=== PATIENT | female | born 1945 | race Hispanic/Latino ===

== ENCOUNTER 2017-06-18 20:03 | Emergency (ER) | payer OTHER, MEDICARE ==
[~2017-06-18 20:03] MED LIST: AMLO5TAB2 PO; DENO60DI SQ; ENAL20TA PO; GABA-529 PO; MELO-108 PO; PARO10TA71 PO; SOLI10TA PO; TIZA4TAB4 PO; TRAM50TA4 PO
[2017-06-18 20:30] LABS: APPEARANCE,URINE Clear (CLEAR); BILIRUBIN,URINE Negative (NEGATIVE); COLOR,URINE Yellow (YELLOW); GLUCOSE, URINE (UA) Negative (NEGATIVE); KETONES,URINE Trace mg/dL (NEGATIVE); LEUKOCYTE ESTERASE ,URINE Trace (NEGATIVE); NITRATE,URINE Negative (NEGATIVE); OCCULT BLOOD,URINE Negative (NEGATIVE); PROTEIN,URINE Negative (NEGATIVE)
[2017-06-18 20:36] LABS: BACTERIA,URINE None Seen /HPF (None Seen); RBC,URINE None Seen /HPF (0-1); SQUAMOUS EPITHELIAL CELL,UR 0-2 /LPF (0-2)
[2017-06-18] MEDS ORDERED: BENZONATATE 100 MG CAPSULE PO ONE (22:13)
[2017-06-18 22:44] LABS: BASOPHILS % (AUTO) 0.7 % (0.0-5.0); EOSINOPHILS % (AUTO) 2.4 % (0.0-8.0); HEMATOCRIT 35.6 % (36-48); LYMPHOCYTES % (AUTO) 17.5 % (21.0-51.0); MEAN CORPUSCULAR HGB CONC 33.8 g/dL (32.0-36.0); MEAN CORPUSCULAR VOLUME 82.8 fL (79-99); MONOCYTES % (AUTO) 8.3 % (3.0-13.0); NEUTROPHILS % (AUTO) 71.1 % (40.0-77.0); PLATELET COUNT (AUTO) 253 K/uL (130-400); RED CELL DISTRIBUTION WIDTH 13.8 % (11.0-15.5); WHITE BLOOD COUNT (AUTO) 10.6 K/uL (4.8-10.8)
[2017-06-18 22:55] LABS: POTASSIUM 4.1 mmol/L (3.5-5.1)
[2017-06-18 23:01] LABS: ALBUMIN 3.3 g/dL (3.5-5.0); BILIRUBIN,TOTAL 0.5 mg/dL (0.2-1.0); TOTAL PROTEIN, SERUM 7.4 g/dL (6.0-8.3)
[2017-06-18] MEDS ORDERED: ASPIRIN 325 MG TABLET ONE (23:23)
[2017-06-18 23:37] LABS: CREATINE KINASE MB < 0.5 ng/mL (0.5-3.6); CREATINE KINASE, TOTAL 68 U/L (21-232); MYOGLOBIN 43 ng/mL (10-92); TROPONIN I < 0.04 ng/mL (0.00-0.06)
== END 2017-06-19 00:28 | disposition home or self-care (01) ==
LOC: EDH 20:03
DX: R94.31 Abnormal electrocardiogram [ECG] [EKG] (principal); J06.9 Acute upper respiratory infection, unspecified; R07.9 Chest pain, unspecified; R00.2 Palpitations; I10 Essential (primary) hypertension; Z79.899 Other long term (current) drug therapy
CPT/HCPCS: 36415; 71046; 80053; 81001; 82550; 82553; 83874; 84484; 85025; 87804; 93005; 99291

== ENCOUNTER 2019-03-02 17:26 | Observation (INO) | payer OTHER, MEDICARE ==
[~2019-03-02] VITALS: Ht 149.9 cm; Wt 74.8 kg
[~2019-03-02 17:26] MED LIST changes: -AMLO5TAB2 PO; +AMLO5TAB9 PO; -TIZA4TAB4 PO; +TIZA4TAB5 PO
[2019-03-02 18:36] LABS: CREATININE 1.7 mg/dL (0.5-1.5); POTASSIUM 4.4 mmol/L (3.5-5.1)
[2019-03-02 18:40] LABS: ALBUMIN 3.9 g/dL (3.5-5.0); BILIRUBIN,TOTAL 0.5 mg/dL (0.2-1.0); TOTAL PROTEIN, SERUM 7.6 g/dL (6.0-8.3)
[2019-03-02 18:41] LABS: APPEARANCE,URINE Cloudy (CLEAR); BILIRUBIN,URINE Negative (NEGATIVE); COLOR,URINE Yellow (YELLOW); GLUCOSE, URINE (UA) Negative (NEGATIVE); KETONES,URINE Negative (NEGATIVE); LEUKOCYTE ESTERASE ,URINE Moderate (NEGATIVE); NITRATE,URINE Positive (NEGATIVE); OCCULT BLOOD,URINE Negative (NEGATIVE); PROTEIN,URINE Trace mg/dL (NEGATIVE)
[2019-03-02 18:51] LABS: B-TYPE NATRIURETIC PEPTIDE 24 pg/mL (0-100)
[2019-03-02 18:54] LABS: BASOPHILS % (AUTO) 0.6 % (0.0-5.0); EOSINOPHILS % (AUTO) 2.3 % (0.0-8.0); HEMATOCRIT 39.2 % (36-48); LYMPHOCYTES % (AUTO) 25.5 % (21.0-51.0); MEAN CORPUSCULAR HEMOGLOBIN 28.6 pg (27.0-33.0); MEAN CORPUSCULAR HGB CONC 33.7 g/dL (32.0-36.0); MEAN CORPUSCULAR VOLUME 85.1 fL (79-99); MONOCYTES % (AUTO) 7.7 % (3.0-13.0); NEUTROPHILS % (AUTO) 63.9 % (40.0-77.0); NUCLEATED RED BLOOD CELLS 0.1 % (0.0-0.19); PLATELET COUNT (AUTO) 256 K/uL (130-400); RED CELL DISTRIBUTION WIDTH 14.3 % (11.0-15.5)
[2019-03-02 19:02] LABS: BACTERIA,URINE Many /HPF (None Seen); SQUAMOUS EPITHELIAL CELL,UR 0-2 /HPF (0-2)
[2019-03-02 19:43] LABS: PARTIAL THROMBOPLASTIN TIME 25.6 SEC (26.3-35.5)
[2019-03-02 19:53] LABS: INR 0.95 (0.85-1.15)
[2019-03-02] MEDS ORDERED: IPRATROPIUM/ALBUTEROL SULFATE 3 ML SOLUTION IH ONE (21:30)
[2019-03-02] MEDS ORDERED: CEFTRIAXONE SODIUM 1 GM ONE (21:30)
[2019-03-02] MEDS ORDERED: ENOXAPARIN SODIUM 100 MG/1 ML SQ ONE (21:30)
[2019-03-02] MEDS ORDERED: PHARMACY COMMUNICATION MISC SCH (22:00)
[2019-03-03 01:25] VITALS: BP 142/85
[2019-03-03] MEDS: SODIUM CHLORIDE 0.9% 1000ML 1,000 ML IV SCH ×2 (01:56→17:45)
[2019-03-03 04:00] VITALS: BP 156/82
[2019-03-03 08:00] VITALS: BP 118/69
[2019-03-03 12:00] VITALS: BP 118/89
[2019-03-03] MEDS ORDERED: LETR2.5T6 PO (14:38)
[2019-03-03] MEDS ORDERED: SOLI10TA7 PO (14:38)
[2019-03-03] MEDS ORDERED: LINA290C PO (14:38)
[2019-03-03] MEDS ORDERED: CALC-1038 PO (14:38)
[2019-03-03 16:00] VITALS: BP 145/82
[2019-03-03 20:00] VITALS: BP 117/76
[2019-03-03] MEDS: GABAPENTIN 100 MG CAPSULE PO SCH (20:31)
[2019-03-03] MEDS ORDERED: CEFTRIAXONE SODIUM 1 GM IVP SCH (21:00)
[2019-03-04] VITALS: BP 125/64
[2019-03-04 04:00] VITALS: BP 125/70
[2019-03-04 08:00] VITALS: BP 125/52
[2019-03-04] MEDS ORDERED: Solifenacin Succinate 10 MG PO SCH (09:00)
[2019-03-04] MEDS ORDERED: CALCIUM CARBONATE 500 MG TABLET PO SCH (09:00)
[2019-03-04] MEDS ORDERED: Letrozole 2.5 MG TAB PO SCH (09:00)
[2019-03-04] MEDS: GABAPENTIN 100 MG CAPSULE PO SCH (09:43)
[2019-03-04] MEDS ORDERED: AMLODIPINE BESYLATE 5 MG TAB PO SCH (12:00)
[2019-03-04] MEDS ORDERED: ENALAPRIL MALEATE 10 MG TABLET PO SCH (12:00)
--- NOTE | 2019-03-04 12:31 | NUR ---
CM NOTES CHART REVIEWED, ORDER FOR DISCHARGE NOTED, PT HERE IN OBS STATUS AND NO TRIGGERS TO CM, NO CONCNERNS VOICED BY RN; DETAILED CM ASSESSMENT DEFERRED AT THIS TIME Addendum: 03/04/19 at 1232 by BOB MAYORGA RN CM Amended: Links added.
== END 2019-03-04 12:15 | disposition home or self-care (01) ==
LOC: EDH 17:26 → EDHIP 21:26 → 3CH 03-03 01:40
PROVIDERS: ADMIT Internal Medicine; ATTEND Internal Medicine
DX: R06.02 Shortness of breath (principal); R97.1 Elevated cancer antigen 125 [CA 125]; N39.0 Urinary tract infection, site not specified; I10 Essential (primary) hypertension; Z85.3 Personal history of malignant neoplasm of breast; Z91.09 Other allergy status, other than to drugs and biological substances; Z90.49 Acquired absence of other specified parts of digestive tract; Z79.899 Other long term (current) drug therapy
CPT/HCPCS: 36415; 71045; 78582; 80053; 81001; 82550; 83605; 83880; 84484; 85025; 85378; 85610; 85730; 87040 ×2; 87077; 87088; 87186; 93005; 93971; 94640; 96374; 99284; A9540; A9558; G0378 ×33; J0696 ×2; J1650; J7030

== ENCOUNTER → 2019-05-01 | Outpatient (CLI) | payer OTHER, MEDICARE ==
--- NOTE | 2019-04-12 13:16 | NUR ---
PT WAS A NO SHOW FOR THIS DATE OF SERVICE
[~2019-05-01] VITALS: Ht 152.4 cm; Wt 74.8 kg
[~2019-05-01] MED LIST changes: +CALC-1038 PO; +LETR2.5T6 PO; +LINA290C PO; -PARO10TA71 PO; +REGADENOSON 0.4 MG/5 ML PF SYG IVP SCH; -SOLI10TA PO; +SOLI10TA7 PO; -TIZA4TAB5 PO
== END | disposition home or self-care (01) ==
LOC: SHCH 07:52
PROVIDERS: ATTEND Internal Medicine Cardiovascular Disease
DX: I20.9 Angina pectoris, unspecified (principal); R06.00 Dyspnea, unspecified
CPT/HCPCS: 78452; 93017; 96374; A9500 ×2; J2785

== ENCOUNTER → 2019-05-04 | Outpatient (CLI) | payer OTHER, MEDICARE ==
[~2019-05-04] MED LIST changes: -REGADENOSON 0.4 MG/5 ML PF SYG IVP SCH
== END ==
LOC: SHCH 15:29
PROVIDERS: ATTEND Internal Medicine Cardiovascular Disease
DX: R06.00 Dyspnea, unspecified (principal); I20.9 Angina pectoris, unspecified
CPT/HCPCS: 93306

== ENCOUNTER → 2019-06-13 | Outpatient (CLI) | payer OTHER, MEDICARE ==
[~2019-06-13] MED LIST changes: +ALBUTEROL SULFATE 0.083% 2.5 MG/3 ML INH IH ONE; -LETR2.5T6 PO; +LETR2.5T7 PO
== END | disposition home or self-care (01) ==
LOC: RESP 12:22
PROVIDERS: ATTEND Internal Medicine Cardiovascular Disease
DX: J44.9 Chronic obstructive pulmonary disease, unspecified (principal)
CPT/HCPCS: 94060; 94727; 94729

== ENCOUNTER → 2019-06-26 | Outpatient (CLI) | payer OTHER, MEDICARE ==
[~2019-06-26] MED LIST changes: -ALBUTEROL SULFATE 0.083% 2.5 MG/3 ML INH IH ONE
== END | disposition home or self-care (01) ==
LOC: SLP 20:12
PROVIDERS: ATTEND Internal Medicine Cardiovascular Disease
DX: G47.33 Obstructive sleep apnea (adult) (pediatric) (principal)
CPT/HCPCS: 95810

== ENCOUNTER 2019-06-29 22:51 | Inpatient (IN) | payer OTHER, MEDICARE ==
[~2019-06-29] VITALS: Ht 149.9 cm; Wt 72.6 kg
[2019-06-29 23:14] LABS: BASOPHILS % (AUTO) 0.3 % (0.0-5.0); EOSINOPHILS % (AUTO) 0.4 % (0.0-8.0); HEMATOCRIT 35.9 % (36-48); LYMPHOCYTES % (AUTO) 5.7 % (21.0-51.0); MEAN CORPUSCULAR HEMOGLOBIN 27.7 pg (27.0-33.0); MEAN CORPUSCULAR HGB CONC 32.6 g/dL (32.0-36.0); MEAN CORPUSCULAR VOLUME 84.9 fL (79-99); MONOCYTES % (AUTO) 7.8 % (3.0-13.0); NEUTROPHILS % (AUTO) 85.3 % (40.0-77.0); PLATELET COUNT (AUTO) 306 K/uL (130-400); RED BLOOD CELL COUNT(AUTO) 4.23 MIL/uL (4.00-5.50); RED CELL DISTRIBUTION WIDTH 14.5 % (11.0-15.5); WHITE BLOOD COUNT (AUTO) 15.3 K/uL (4.8-10.8)
[2019-06-29 23:23] LABS: CREATININE 1.3 mg/dL (0.5-1.5); POTASSIUM 3.9 mmol/L (3.5-5.1)
[2019-06-29 23:28] LABS: ALBUMIN 3.5 g/dL (3.5-5.0); BILIRUBIN,TOTAL 0.8 mg/dL (0.2-1.0); TOTAL PROTEIN, SERUM 8.2 g/dL (6.0-8.3)
[2019-06-29 23:37] LABS: INR 0.94 (0.85-1.15); PARTIAL THROMBOPLASTIN TIME 25.1 SEC (26.3-35.5); PROTHROMBIN TIME 10.2 SEC (9.6-11.6)
[2019-06-29] MEDS ORDERED: ASPIRIN 325 MG TABLET ONE (23:57)
[2019-06-29] MEDS ORDERED: KETOROLAC TROMETHAMINE 15MG/ML ONE (23:57)
[2019-06-29] MEDS ORDERED: MORPHINE SULFATE 4 MG/1ML SYG ONE (23:57)
[2019-06-30] MEDS ORDERED: SODIUM CHLORIDE 0.9% 1000ML 1,000 ML IV ONE (00:57)
[2019-06-30] MEDS ORDERED: IOHEXOL-350 75 ML VIAL IV ONE (02:03)
[2019-06-30] MEDS ORDERED: MORPHINE SULFATE 4 MG/1ML SYG ONE (02:46)
[2019-06-30 07:11] LABS: CREATINE KINASE, TOTAL 40 U/L (21-232); MYOGLOBIN 40 ng/mL (10-92); TROPONIN I < 0.04 ng/mL (0.00-0.06)
[2019-06-30 07:43] VITALS: BP 131/73
[2019-06-30] MEDS ORDERED: NITROGLYCERIN 0.4 MG SL TAB SL PRN (08:00)
[2019-06-30] MEDS: ASPIRIN 81MG TAB.CHEW PO SCH (08:47)
[2019-06-30 10:52] VITALS: BP 124/70
[2019-06-30 15:29] VITALS: BP 127/72
[2019-06-30 15:35] LABS: CREATINE KINASE, TOTAL 26 U/L (21-232); MYOGLOBIN 35 ng/mL (10-92); TROPONIN I < 0.04 ng/mL (0.00-0.06)
--- NOTE | 2019-06-30 15:53 | NUR ---
CHEST AND NECK PAIN Patient c/o chest pain when head of bed was elevated to 45 degrees and requested to keep HOB at 30 degrees. Also, when she was repositioned in bed, she c/o very high pain to the base of her neck. Pain is intense when her chin is flexed towards her neck, eliciting pain in her chest as well. Otherwise,h is OK. Stated the pain started when she was coming back from playing at a casino in [place], [place]. If she is resting, no pains. Dr. Starr was called and updated. Stated he will come soon.
--- NOTE | 2019-06-30 16:03 | NUR ---
INITIAL: Met with pt and family members this afternoon to discuss dcp. Per pt she lives w her boyfriend. Prior to admission she was independent w ambulation. She requires assistance w ADLs, has provider services 9hr/day. She attends [facility] from 7a-2p. Per pt the [facility] provides transportation where needed. PT states that she has at home a walker if needed. Per pt she feels safe and comfortable to return home at mo. CM to continue to follow and wait for Md recommendations. Addendum: 06/30/19 at 1605 by MISAEL SCOTT Amended: Links added.
[2019-06-30] MEDS ORDERED: PHARMACY COMMUNICATION MISC SCH (16:15)
[2019-06-30] MEDS: KETOROLAC TROMETHAMINE 15MG/ML IV PRN (17:14)
[2019-06-30] MEDS: PANTOPRAZOLE SODIUM 40 MG TABLET.DR PO SCH (17:14)
--- NOTE | 2019-06-30 17:19 | NUR ---
TORADOL Administered toradol for pain level 9 to neck. Patient also develops very sharp pains in neck if she laughs heartily.
[2019-06-30] MEDS: TIZANIDINE HCL 2 MG TABLET PO SCH (17:56)
--- NOTE | 2019-06-30 18:07 | NUR ---
HOME MEDICATIONS Provider will bring home medications tomorrow.
[2019-06-30 18:21] VITALS: BP 125/78
[2019-06-30] MEDS ORDERED: TIZANIDINE HCL 2 MG TABLET PO SCH (21:00)
[2019-06-30] MEDS ORDERED: CALC600T12 PO (22:18)
[2019-06-30 23:22] VITALS: BP 138/62
[2019-07-01 03:09] VITALS: BP 96/69
[2019-07-01 05:52] LABS: HEMATOCRIT 29.4 % (36-48); MEAN CORPUSCULAR HEMOGLOBIN 27.5 pg (27.0-33.0); MEAN CORPUSCULAR VOLUME 83.3 fL (79-99); PLATELET COUNT (AUTO) 269 K/uL (130-400); RED BLOOD CELL COUNT(AUTO) 3.53 MIL/uL (4.00-5.50); RED CELL DISTRIBUTION WIDTH 14.6 % (11.0-15.5); WHITE BLOOD COUNT (AUTO) 12.6 K/uL (4.8-10.8)
[2019-07-01 06:00] LABS: CREATININE 1.1 mg/dL (0.5-1.5)
--- NOTE | 2019-07-01 06:37 | NUR ---
PAGED VIA ANSWERING SERVICE TO REPORT K LEVEL OF 3.0. NO ANSWER DURING INITIAL CALL, ANSWERING SERVICE WILL KEEP TRYING. WILL AWAIT CALL BACK.
[2019-07-01 08:00] VITALS: BP 113/56
[2019-07-01] MEDS ORDERED: LIDOCAINE HCL-MPF 1% 2ML VIAL IV PRN (08:00)
[2019-07-01] MEDS ORDERED: POTASSIUM CHLORIDE 20MEQ/100ML 100 ML IV PRN (08:00)
[2019-07-01] MEDS ORDERED: POTASSIUM CHLORIDE 20 MEQ ERTAB PO PRN (08:00)
[2019-07-01] MEDS: TIZANIDINE HCL 2 MG TABLET PO SCH ×3 (09:39→20:39)
[2019-07-01] MEDS: PANTOPRAZOLE SODIUM 40 MG TABLET.DR PO SCH (09:40)
[2019-07-01] MEDS: POTASSIUM CHLORIDE 10% ELIXIR 20 MEQ/15 ML UDCUP PO PRN ×2 (09:40→13:38)
[2019-07-01] MEDS: ASPIRIN 81MG TAB.CHEW PO SCH (09:40)
[2019-07-01] MEDS ORDERED: SODIUM CHLORIDE 0.9% 250 ML IV ONE (09:44)
[2019-07-01] MEDS: KETOROLAC TROMETHAMINE 15MG/ML IV PRN (10:01)
[2019-07-01] MEDS ORDERED: LORAZEPAM 2 MG/ML 1 ML VIAL IVP SCH (10:45)
--- NOTE | 2019-07-01 11:02 | NUR ---
POTASSIUM/LORAZEPAM Started replacement for level 3.[address] Starr. Administered 1mg lorazepam IV as premedication for MRI C-Spine.
[2019-07-01 11:43] VITALS: BP 145/67
[2019-07-01 16:00] VITALS: BP 125/60
[2019-07-01 19:25] VITALS: BP 128/65
--- NOTE | 2019-07-01 22:27 | NUR ---
MD Dr CARR came to see pt.
[2019-07-01 23:08] VITALS: BP 127/61
--- NOTE | 2019-07-02 03:00 | NUR ---
BATH Pt took a shower,family member at bedside.Lilian well.Voiced no complaints of pain or discomfort.
[2019-07-02 03:41] VITALS: BP 156/81
[2019-07-02 07:31] VITALS: BP 150/67
[2019-07-02] MEDS: LETROZOLE 2.5 MG PO SCH (09:00)
[2019-07-02] MEDS: GABAPENTIN 100 MG CAPSULE PO SCH ×2 (09:03→21:28)
[2019-07-02] MEDS: TIZANIDINE HCL 2 MG TABLET PO SCH ×3 (09:03→21:28)
[2019-07-02] MEDS: PANTOPRAZOLE SODIUM 40 MG TABLET.DR PO SCH (09:03)
[2019-07-02] MEDS: ASPIRIN 81MG TAB.CHEW PO SCH (09:03)
[2019-07-02 11:29] VITALS: BP 130/87
--- NOTE | 2019-07-02 13:04 | NUR ---
Notified Dr. Cole Cardenas's technical assistant, of consult. She stated Dr. Galvan has already left for the day, consult will be done in the am. Will update ordering MD, Dr. Quintero.
[2019-07-02] MEDS: AMLODIPINE BESYLATE 5 MG TAB PO SCH (13:42)
[2019-07-02] MEDS: ENALAPRIL MALEATE 10 MG TABLET PO SCH (13:42)
[2019-07-02 15:51] VITALS: BP 141/78
[2019-07-02 19:00] VITALS: BP 135/79
[2019-07-02] MEDS ORDERED: METHYLPREDNISOLONE 4 MG TABLET PO SCH (21:00)
--- NOTE | 2019-07-02 23:13 | NUR ---
VISITORS Visitors at bedside.Pt watching tv.Not in any distress.
--- NOTE | 2019-07-02 23:18 | NUR ---
PRUNE JUICE Pt states she gets constipated and she has not had a bm since lastr week.prune juice offerred.
[2019-07-03] VITALS (7 sets, daily range): BP systolic 126–160; BP diastolic 58–91
--- NOTE | 2019-07-03 01:39 | NUR ---
SCREAMING Pt asleep ans screaming out loud.Her daughter at bedside states she does that at home too.Pt aroused and denies pain or discomfort.AAO x 3.
--- NOTE | 2019-07-03 03:38 | NUR ---
SLEPT Pt slept fairly,no distress noted.
[2019-07-03] MEDS: TIZANIDINE HCL 2 MG TABLET PO SCH ×3 (08:48→20:39)
[2019-07-03] MEDS: GABAPENTIN 100 MG CAPSULE PO SCH ×2 (08:48→20:39)
[2019-07-03] MEDS: METHYLPREDNISOLONE 4 MG TABLET PO SCH ×2 (08:48→17:13)
[2019-07-03] MEDS: PANTOPRAZOLE SODIUM 40 MG TABLET.DR PO SCH (08:49)
[2019-07-03] MEDS: ASPIRIN 81MG TAB.CHEW PO SCH (08:49)
[2019-07-03] MEDS: LETROZOLE 2.5 MG PO SCH (08:49)
--- NOTE | 2019-07-03 09:36 | NUR ---
TEXTED DR. AGSCA'S CUSTOM SEAMSTRESS TO FOLLOW UP ABOUT THE CONSULT OF THIS PATIENT, WILL WAIT FOR THE CALL BACK.
[2019-07-03] MEDS: ENALAPRIL MALEATE 10 MG TABLET PO SCH (14:23)
[2019-07-03] MEDS: AMLODIPINE BESYLATE 5 MG TAB PO SCH (14:24)
--- NOTE | 2019-07-03 19:00 | NUR ---
PLAN OF CARE Received report from Lesia POLO.Pt is waiting for Dr Sue Mejia for PT and Rehab.Family updated during bedside report.
[2019-07-03] MEDS ORDERED: METHYLPREDNISOLONE 4 MG TABLET PO SCH (21:00)
[2019-07-04 03:23] VITALS: BP 132/77
[2019-07-04 07:30] VITALS: BP 153/81
[2019-07-04] MEDS: LETROZOLE 2.5 MG PO SCH (09:00)
[2019-07-04] MEDS: GABAPENTIN 100 MG CAPSULE PO SCH ×2 (09:12→22:03)
[2019-07-04] MEDS: TIZANIDINE HCL 2 MG TABLET PO SCH ×3 (09:12→22:02)
[2019-07-04] MEDS: ASPIRIN 81MG TAB.CHEW PO SCH (09:12)
[2019-07-04] MEDS: PANTOPRAZOLE SODIUM 40 MG TABLET.DR PO SCH (09:12)
[2019-07-04] MEDS: METHYLPREDNISOLONE 4 MG TABLET PO SCH ×2 (09:12→17:46)
[2019-07-04 11:07] VITALS: BP 160/70
[2019-07-04] MEDS: AMLODIPINE BESYLATE 5 MG TAB PO SCH (15:19)
[2019-07-04] MEDS: ENALAPRIL MALEATE 10 MG TABLET PO SCH (15:19)
[2019-07-04 17:12] VITALS: BP 167/108
[2019-07-04 20:22] VITALS: BP 134/77
[2019-07-05 00:08] VITALS: BP 118/45
[2019-07-05 04:53] VITALS: BP 136/74
[2019-07-05 07:30] VITALS: BP 110/67
[2019-07-05] MEDS ORDERED: METHYLPREDNISOLONE 4 MG TABLET PO SCH (08:00)
[2019-07-05] MEDS: LETROZOLE 2.5 MG PO SCH (09:00)
[2019-07-05] MEDS: TIZANIDINE HCL 2 MG TABLET PO SCH (10:21)
[2019-07-05] MEDS: ASPIRIN 81MG TAB.CHEW PO SCH (10:21)
[2019-07-05] MEDS: PANTOPRAZOLE SODIUM 40 MG TABLET.DR PO SCH (10:21)
[2019-07-05] MEDS: GABAPENTIN 100 MG CAPSULE PO SCH (10:21)
[2019-07-05 11:00] VITALS: BP 126/71
--- NOTE | 2019-07-05 13:15 | NUR ---
DISCHARGE PATIENT GIVEN DISCHARGE INSTRUCTIONS VIA TEACH BACK. PATIENT TO FOLLOW UP WITH DR. CARR TOMORROW FOR REFFERAL WITH DR. TRISTEN BARAJAS FOR PAIN MANAGEMENT TO E. PATIENT STABLE AT THIS TIME. PATIENT WHEELED TO LOBBY BY MARY LOPEZ.
[2019-07-06] MEDS ORDERED: METHYLPREDNISOLONE 4 MG TABLET PO SCH (08:00)
[2019-07-07] MEDS ORDERED: METHYLPREDNISOLONE 4 MG TABLET PO SCH (08:00)
== END 2019-07-05 13:15 | disposition home or self-care (01) | DRG 552 ==
LOC: EDH 22:51 → EDHIP 06-30 05:00 → 3CH 06-30 06:30
PROVIDERS: ADMIT Internal Medicine; ATTEND Internal Medicine
DX: M48.02 Spinal stenosis, cervical region (principal); M54.10 Radiculopathy, site unspecified; M43.6 Torticollis; D72.829 Elevated white blood cell count, unspecified; I10 Essential (primary) hypertension; I45.10 Unspecified right bundle-branch block; Z96.653 Presence of artificial knee joint, bilateral; Z85.3 Personal history of malignant neoplasm of breast; Z90.10 Acquired absence of unspecified breast and nipple
CPT/HCPCS: 36415; 71045; 71275; 72141; 80048; 80053; 82550; 83874; 84132; 84484; 85025; 85027; 85378; 85610; 85730; 93005; 97039; 99291; G0378; J1885; J2060; J2270; J3480; J3490; J7030; J7509; Q9967

== ENCOUNTER → 2019-08-13 | Outpatient (CLI) | payer OTHER, MEDICARE ==
[~2019-08-13] MED LIST changes: +CALC600T12 PO
== END | disposition home or self-care (01) ==
LOC: SLP 20:34
PROVIDERS: ATTEND Internal Medicine Cardiovascular Disease
DX: G47.33 Obstructive sleep apnea (adult) (pediatric) (principal)
CPT/HCPCS: 95811

== ENCOUNTER 2022-03-31 21:08 | Emergency (ER) | payer OTHER, MEDICARE ==
[~2022-03-31] VITALS: Ht 149.9 cm; Wt 66.7 kg
[~2022-03-31 21:08] MED LIST changes: +AMLO-257 PO; -AMLO5TAB9 PO; +CALC-1125 PO; -CALC600T12 PO; -ENAL20TA PO; +ENAL20TA18 PO
[2022-03-31 23:13] LABS: BASOPHILS % (AUTO) 0.3 % (0.0-5.0); EOSINOPHILS % (AUTO) 2.1 % (0.0-8.0); HEMATOCRIT 38.2 % (36-48); LYMPHOCYTES % (AUTO) 17.2 % (21.0-51.0); MEAN CORPUSCULAR HEMOGLOBIN 28.4 pg (27.0-33.0); MEAN CORPUSCULAR HGB CONC 31.9 g/dL (32.0-36.0); MEAN CORPUSCULAR VOLUME 88.8 fL (79-99); MONOCYTES % (AUTO) 7.5 % (3.0-13.0); NEUTROPHILS % (AUTO) 72.5 % (40.0-77.0); PLATELET COUNT (AUTO) 245 K/uL (130-400); RED CELL DISTRIBUTION WIDTH 13.7 % (11.0-15.5); WHITE BLOOD COUNT (AUTO) 11.4 K/uL (4.8-10.8)
[2022-03-31 23:22] LABS: CREATININE 1.1 mg/dL (0.5-1.5); POTASSIUM 4.2 mmol/L (3.5-5.1)
[2022-03-31 23:31] LABS: ALBUMIN 3.8 g/dL (3.5-5.0); TOTAL PROTEIN, SERUM 7.4 g/dL (6.0-8.3)
[2022-03-31 23:35] VITALS: BP 111/66
[2022-03-31 23:52] LABS: APPEARANCE,URINE CLEAR (CLEAR); BILIRUBIN,URINE NEGATIVE (NEGATIVE); COLOR,URINE LIGHT-YELLOW (YELLOW); GLUCOSE, URINE (UA) NEGATIVE (NEGATIVE); KETONES,URINE NEGATIVE (NEGATIVE); LEUKOCYTE ESTERASE ,URINE 500 Leu/uL (NEGATIVE); NITRATE,URINE NEGATIVE (NEGATIVE); PH,URINE 5.5 (5.0-8.0); PROTEIN,URINE NEGATIVE (NEGATIVE); UROBILINOGEN,URINE 0.2 mg/dL (0.2-1.0)
[2022-03-31 23:58] LABS: MUCUS,URINE RARE LPF (None Seen); SQUAMOUS EPITHELIAL CELL,UR FEW /HPF (0-2)
[2022-04-01] MEDS ORDERED: MACR100 PO (00:19)
[2022-04-01] MEDS ORDERED: CEFTRIAXONE 1G VIAL IVP ONE (00:30)
== END 2022-04-01 00:29 | disposition home or self-care (01) ==
LOC: EDH 21:08
DX: S10.93XA Contusion of unspecified part of neck, initial encounter (principal); N39.0 Urinary tract infection, site not specified; R29.6 Repeated falls; I10 Essential (primary) hypertension; Z79.1 Long term (current) use of non-steroidal anti-inflammatories (NSAID); X58.XXXA Exposure to other specified factors, initial encounter; Y93.89 Activity, other specified; Y92.89 Other specified places as the place of occurrence of the external cause; Y99.8 Other external cause status
CPT/HCPCS: 36415; 70450; 71045; 72125; 80053; 81001; 82550; 84484; 85025; 87077; 87088; 87186; 93005

== ENCOUNTER 2022-11-02 20:17 | Emergency (ER) | payer OTHER, MEDICARE ==
[~2022-11-02 20:17] MED LIST changes: +ENAL-91 PO; -ENAL20TA18 PO; +GABA300C PO; +IBUP-1493 PO
[2022-11-02 20:46] LABS: APPEARANCE,URINE CLEAR (CLEAR); BILIRUBIN,URINE NEGATIVE (NEGATIVE); COLOR,URINE LIGHT-YELLOW (YELLOW); GLUCOSE, URINE (UA) NEGATIVE (NEGATIVE); KETONES,URINE NEGATIVE (NEGATIVE); LEUKOCYTE ESTERASE ,URINE 250 Leu/uL (NEGATIVE); NITRATE,URINE NEGATIVE (NEGATIVE); OCCULT BLOOD,URINE NEGATIVE (NEGATIVE); PROTEIN,URINE NEGATIVE (NEGATIVE); UROBILINOGEN,URINE 0.2 mg/dL (0.2-1.0)
[2022-11-02 20:56] LABS: BACTERIA,URINE MOD /HPF (None Seen); MUCUS,URINE RARE LPF (None Seen); RBC,URINE 0-1 /HPF (0-1); SQUAMOUS EPITHELIAL CELL,UR RARE /HPF (0-2)
[2022-11-02 21:01] LABS: BASOPHILS % (AUTO) 0.4 % (0.0-5.0); EOSINOPHILS % (AUTO) 1.9 % (0.0-8.0); HEMATOCRIT 37.6 % (36-48); MEAN CORPUSCULAR HEMOGLOBIN 28.7 pg (27.0-33.0); MEAN CORPUSCULAR HGB CONC 31.4 g/dL (32.0-36.0); MEAN CORPUSCULAR VOLUME 91.5 fL (79-99); MONOCYTES % (AUTO) 7.4 % (3.0-13.0); NEUTROPHILS % (AUTO) 76.9 % (40.0-77.0); PLATELET COUNT (AUTO) 217 K/uL (130-400); RED BLOOD CELL COUNT(AUTO) 4.11 MIL/uL (4.00-5.50); RED CELL DISTRIBUTION WIDTH 13.5 % (11.0-15.5); WHITE BLOOD COUNT (AUTO) 7.7 K/uL (4.8-10.8)
[2022-11-02 21:10] LABS: CREATININE 1.7 mg/dL (0.5-1.5); POTASSIUM 4.2 mmol/L (3.5-5.1)
[2022-11-02 21:15] LABS: ALBUMIN 3.9 g/dL (3.5-5.0); TOTAL PROTEIN, SERUM 7.6 g/dL (6.0-8.3)
[2022-11-03] MEDS ORDERED: CEFTRIAXONE 1G VIAL ONE (03:33)
[2022-11-03 03:38] VITALS: BP 132/77
[2022-11-03] MEDS ORDERED: CEPH500B PO (03:45)
[2022-11-03] MEDS ORDERED: CEFTRIAXONE 1G VIAL IVPB ONE (04:00)
== END 2022-11-03 04:50 | disposition home or self-care (01) ==
LOC: EDH 20:17
DX: N39.0 Urinary tract infection, site not specified (principal); I10 Essential (primary) hypertension; Z79.1 Long term (current) use of non-steroidal anti-inflammatories (NSAID); Z79.899 Other long term (current) drug therapy; Z85.3 Personal history of malignant neoplasm of breast
CPT/HCPCS: 99284; 96365; 80053; 85025; 87040 ×2; 87077; 87088; 87186; 83605; 81001; 36415; J0696